=== PATIENT | male | born 1950 | race Caucasian/White ===

== ENCOUNTER 2020-10-05 11:45 | Emergency (ER) | payer MEDICARE, OTHER ==
[2020-10-05] MEDS ORDERED: VALTREX1000 MG PO (15:28)
[2020-10-05] MEDS ORDERED: PREDNISONE 20 M20 MG PO (15:28)
[2020-10-05] MEDS ORDERED: LACRILUBE OPTH3.5 GM OP (15:29)
== END 2020-10-05 15:36 | disposition home or self-care (01) ==
LOC: ER1 11:45
DX: G51.0 Bell's palsy (principal); I10 Essential (primary) hypertension; E11.9 Type 2 diabetes mellitus without complications; M17.0 Bilateral primary osteoarthritis of knee; Z79.84 Long term (current) use of oral hypoglycemic drugs; Z79.899 Other long term (current) drug therapy; Z79.891 Long term (current) use of opiate analgesic
CPT/HCPCS: 70450; 70551; 82962; 99284